=== PATIENT | female | born 1955 | race Two or more races ===

== ENCOUNTER 2019-08-06 14:10 | Emergency (ER) | payer BC ==
[~2019-08-06] VITALS: Ht 160 cm; Wt 59.0 kg
[2019-08-06 14:35] VITALS: BP 107/59
--- NOTE | 2019-08-06 14:40 | NUR ---
ED Nurse Note: pt. walked in t o er from home. per pt, she was in her garage cleaning and her 3rd digit of the R hand started being swollen abt an hour ago.
[2019-08-06] MEDS ORDERED: AUGMENTIN 875-1 EAC1 ORAL (14:42)
[2019-08-06 14:47] VITALS: BP 107/59
--- NOTE | 2019-08-06 14:47 | NUR ---
ER DISCHARGE NOTE: Patient is cleared to be discharged per ERMD, pt is aox4, on room air, with stable vital signs. pt was given dc and prescription instructions, pt was able to verbalize understanding, pt id band removed. pt is able to ambulate with steady gait. pt took all belongings.
--- NOTE | 2019-08-06 15:25 | Emergency Room Report ---
History of Present Illness General Chief Complaint: Pain Source: Patient Present Illness HPI 64-year-old female presents ED for evaluation. Walked in complaining of pain and swelling to her right middle finger. States that today she was working in the garage with gloves when she felt a sudden pain in her right middle finger. Pulled off the glove and noted that the finger was swollen. Believes it could be a insect bite or spider bite. Throbbing, 7 out of 10, nonradiating. Applied ice. Denies fevers or chills. No other aggravating relieving factors. Denies any other associated symptoms Allergies: Coded Allergies: No Known Allergies (Unverified , 08/06/19) Patient History Past Medical History: none Past Surgical History: none Pertinent Family History: none Social History: Denies: smoking, alcohol use, drug use Now: No Immunizations: UTD Reviewed Nursing Documentation: PMH: Agreed; PSxH: Agreed Nursing Documentation-PMH Past Medical History: No Stated History Review of Systems All Other Systems: negative except mentioned in HPI Physical Exam Vital Signs Date Time Temp Pulse Resp B/P (MAP) Pulse Ox O2 Delivery O2 Flow Rate FiO2 08/06/19 14:33 97.9 68 17 107/59 (75) 95 Room Air Sp02 EP Interpretation: reviewed, normal General Appearance: no apparent distress, alert, GCS 15, non-toxic Head: normocephalic, atraumatic Eyes: bilateral eye normal inspection, bilateral eye PERRL ENT: hearing grossly normal, normal pharynx, no angioedema, normal voice Neck: full range of motion, supple/symm/no masses Respiratory: chest non-tender, lungs clear, normal breath sounds, speaking full sentences Cardiovascular #1: regular rate, rhythm, no edema Cardiovascular #2: 2+ carotid (R), 2+ carotid (L), 2+ radial (R), 2+ radial (L) , 2+ dorsalis pedis (R), 2+ dorsalis pedis (L) Gastrointestinal: normal bowel sounds, non tender, soft, non-distended, no guarding, no rebound Rectal: deferred Genitourinary: normal inspection, no CVA tenderness Musculoskeletal: back normal, normal range of motion, gait/station normal, swelling - R middle finger swelling Neurologic: alert, motor strength/tone normal, oriented x3, sensory intact, responsive, speech normal Psychiatric: judgement/insight normal, memory normal, mood/affect normal, no suicidal/homicidal ideation Reflexes: 3+ bicep (R), 3+ bicep (L), 3+ tricep (R), 3+ tricep (L), 3+ knee (R) , 3+ knee (L) Skin: no rash Lymphatic: no adenopathy Medical Decision Making Diagnostic Impression: Primary Impression: Cellulitis of finger Qualified Codes: L03.011 - Cellulitis of right finger ER Course Hospital Course 64-year-old female presents to ED with pain/swelling to right middle finger Differential diagnoses include: Cellulitis, dermatitis, insect bite, abscess Clinical course Patient placed on stretcher. After initial history, physical exam reveals a female in no acute distress. On exam there is middle finger. Range of motion noted. Sensations intact. No fluctuance or discharge. Slightly warm to touch. Discussed findings with patient. Afebrile, nontoxic-appearing. Concern for cellulitis. Possibly due to insect bite. Will discharge home with antibiotics. Warm compresses. Safe for discharge for close outpatient follow- up. She has a PMD Diagnosis - cellulitis of finger stable and discharged to home with prescription for Augmentin. warm compresses. Instructed to followup with PMD. Instructed return to ED if symptoms recur or worsen Last Vital Signs Date Time Temp Pulse Resp B/P (MAP) Pulse Ox O2 Delivery O2 Flow Rate FiO2 08/06/19 14:33 97.9 68 17 107/59 (75) 95 Room Air Status: improved Disposition: HOME, SELF-CARE Condition: Stable Scripts Amoxicillin/Potassium Clav 875-125* (AUGMENTIN 875-125 TABLET*) 1 Each Tablet 1 TAB ORAL TWICE A DAY, #14 TAB Prov: Rick Daniels MD 08/06/19 Patient Instructions: Cellulitis, [id number] Additional Instructions: warm soaks/compresses. take antibiotics as directed. f/u with PMD Rick Daniels MD Aug 06, 2019 15:25
== END 2019-08-06 14:50 | disposition home or self-care (01) ==
LOC: EMR 14:50
DX: L03.011 Cellulitis of right finger (principal)
CPT/HCPCS: 99281; 99282